=== PATIENT | female | born 1950 | race Caucasian/White ===

== ENCOUNTER 2018-10-20 12:58 | Emergency (ER) | payer OTHER, MEDICARE ==
[~2018-10-20] VITALS: Ht 165.1 cm; Wt 49.4 kg
[2018-10-20 13:05] VITALS: Ht 165.1 cm; Wt 49.4 kg
[2018-10-20 14:38] VITALS: BP 114/55
== END 2018-10-20 14:38 | disposition home or self-care (01) ==
LOC: ED 12:58
DX: S63.602A Unspecified sprain of left thumb, initial encounter (principal); I10 Essential (primary) hypertension; Z98.890 Other specified postprocedural states; W18.30XA Fall on same level, unspecified, initial encounter; Y93.89 Activity, other specified; Y92.89 Other specified places as the place of occurrence of the external cause; Y99.8 Other external cause status